=== PATIENT | male | born 1990 | race Caucasian/White ===

== ENCOUNTER 2017-03-18 10:57 | Emergency (ER) | payer BC ==
--- NOTE | 2017-03-18 11:40 | EDM.PDOC ---
ED HPI GENERAL MEDICAL PROBLEM - General Chief Complaint: Upper Extremity Injury/Pain Stated Complaint: HURT HIM SELF WHILE SKATING Time Seen by Provider: 03/18/17 11:08 Source of Information: Reports: Patient History Limitations: Reports: No Limitations - History of Present Illness INITIAL COMMENTS - FREE TEXT/NARRATIVE: HISTORY AND PHYSICAL: History of present illness: [Patient comes to the emergency room complaining of left shoulder and clavicle pain. States that he was skateboarding at 10:00 last evening when he fell off his skateboard landing on his left side. He is having pain with use of his left arm. Had difficulty showering and putting a shirt on this morning due to the pain in his left shoulder area. He sustained several other abrasions when he fell but none that are causing him any pain at this time. He denies numbness and tingling in his fingers. Fingers and hand have not felt cold. Did not hit his head or lose consciousness. Past history of right hand fracture, left wrist fracture. No previous injury, fracture or surgery to left shoulder and upper arm.] Review of systems: As per history of present illness and below otherwise all systems reviewed and negative. Past medical history: As per history of present illness and as reviewed below otherwise noncontributory. Surgical history: As per history of present illness and as reviewed below otherwise noncontributory. Social history: No reported history of drug or alcohol abuse. Family history: As per history of present illness and as reviewed below otherwise noncontributory. Physical exam: HEENT: Atraumatic, normocephalic. Superficial scratches to right side of face. pupils reactive, EOMI. negative for conjunctival pallor or scleral icterus, mucous membranes moist. Lungs: Clear to auscultation,. Heart: S1S2, regular rate rhythm. Abdomen: Soft, nondistended, nontender. Pelvis: Stable nontender. Genitourinary: Deferred. Rectal: Deferred. Extremities: Tender over the left clavicle and AC joint area. Decreased range of motion with all movements of his left upper extremity. Lower extremities are atraumatic. He ambulates without difficulty or assistance. Several abrasions to both hands, appear to be very stages of healing. Neurovascular unremarkable. Hand mortar carrier strength is strong and equal bilaterally. Cap refill less than 2 seconds to bilateral upper extremities. Neuro: Awake, alert, oriented. Motor and sensory unremarkable throughout. Exam nonfocal. Diagnostics: [Left clavicle x-ray, left shoulder x-ray] Impression: [L shoulder pain] Plan: [X-ray shows no bony abnormalities, dislocation or fracture. Minimal widening of the AC joint which may represent minimal separation. Patient is placed in a shoulder/arm sling and recommended to followup with a local PCP for reevaluation in 48-72 hours. Demonstrated gentle range of motion exercises encourage Tylenol or Motrin as needed. He is in agreement with today's plan all of his questions are answered and concerns are addressed.] Definitive disposition and diagnosis as appropriate pending reevaluation and review of above. Left Shoulder Pain Score (Numeric/FACES): 3 - Related Data Allergies Allergy/AdvReac Type Severity Reaction Status Date / Time No Known Allergies Allergy Verified 03/18/17 11:10 Home Meds: Home Meds . [No Known Home Meds] 03/18/17 [History] Past Medical History - Past Health History Medical/Surgical History: Denies Medical/Surgical History Respiratory History: Reports: Asthma Other Gastrointestinal History: Abdominal hernia Other Musculoskeletal History: left arm fracture - Infectious Disease History Infectious Disease History: Reports: Chicken pox Social & Family History - Family History Family Medical History: Noncontributory - Tobacco Use Smoking Status *Q: Current Every Day Smoker Years of Tobacco use: 10 Packs/Tins Daily: 0.5 - Caffeine Use Caffeine Use: Reports: None - Alcohol Use Days Per Week of Alcohol Use: 3 Number of Drinks Per Day: 4 Total Drinks Per Week: 12 - Recreational Drug Use Recreational Drug Use: No Review of Systems - Review of Systems Review Of Systems: ROS reveals no pertinent complaints other than HPI. Trauma Exam - Physical Exam Exam: See Below Course - Vital Signs Last Recorded V/S: Last Vital Signs Temp 97.9 F 03/18/17 12:53 Pulse 77 03/18/17 12:53 Resp 18 03/18/17 12:53 BP 141/74 H 03/18/17 12:53 Pulse Ox 98 03/18/17 12:53 Departure - Departure Time of Disposition: 12:40 Disposition: Home, Self-Care 01 Condition: good Clinical Impression: Left shoulder pain Qualifiers: Chronicity: acute Qualified Code(s): M25.512 - Pain in left shoulder - Discharge Information Instructions: Shoulder Pain, [id number] Referrals: PCP,None [Primary Care Provider] - Forms: ED Department Discharge Additional Instructions: The following information is given to patients seen in the emergency department who are being discharged to home. This information is to outline your options for follow-up care. We provide all patients seen in our emergency department with a follow-up referral. The need for follow-up, as well as the timing and circumstances, are variable depending upon the specifics of your emergency department visit. If you don't have a primary care physician on staff, we will provide you with a referral. We always advise you to contact your personal physician following an emergency department visit to inform them of the circumstance of the visit and for follow-up with them and/or the need for any referrals to a consulting specialist. The emergency department will also refer you to a specialist when appropriate. This referral assures that you have the opportunity for follow-up care with a specialist. All of these measure are taken in an effort to provide you with optimal care, which includes your follow-up. Under all circumstances we always encourage you to contact your private physician who remains a resource for coordinating your care. When calling for follow-up care, please make the office aware that this follow-up is from your recent emergency room visit. If for any reason you are refused follow-up, please contact the [facility] emergency department at and asked to speak to the emergency department charge nurse. [facility] [address] [place] [address] Call the above listed clinic to make an appointment to establish care. Followup with them in 48-72 hours. Take Tylenol or ibuprofen as needed for discomfort. Gentle range of motion exercises several times per day. Return to ER as needed as discussed.
--- NOTE | 2017-03-18 12:17 | CR ---
EXAMINATION: Left shoulder and left clavicle HISTORY: Pain COMPARISON: None TECHNIQUE: 3 views of the left shoulder and 2 views of the left clavicle FINDINGS/IMPRESSION: There is no acute osseous abnormality, dislocation, or fracture. Bone mineraliz ation appears normal. There is minimal widening at the acromioclavicular joint which could represent minimal separation.
[2017-03-18 13:53] VITALS: BP 141/74
== END 2017-03-18 12:50 | disposition home or self-care (01) ==
LOC: MW.ED 10:57
DX: M25.512 Pain in left shoulder (principal); J45.909 Unspecified asthma, uncomplicated; F17.210 Nicotine dependence, cigarettes, uncomplicated; W19.XXXA Unspecified fall, initial encounter; Y93.51 Activity, roller skating (inline) and skateboarding
CPT/HCPCS: 73000; 73030; 99283; A4566; 99282